=== PATIENT | male | born 1960 | race Caucasian/White ===

== ENCOUNTER 2016-09-11 10:58 | Day surgery (SDC) | payer OTHER ==
[~2016-09-11] VITALS: Ht 180.3 cm; Wt 96.2 kg
[2016-09-11] MEDS ORDERED: PROPOFOL 20 ML ONE (11:58)
[2016-09-11 11:59] VITALS: Ht 180.3 cm; Wt 96.2 kg
[2016-09-11] MEDS ORDERED: MIDAZOLAM 1 MG/ML 2 ML INJ ONE (11:59)
[2016-09-11] MEDS ORDERED: blood pressure med (12:06)
[2016-09-11] MEDS ORDERED: CLON-412 PO (12:06)
[2016-09-11] MEDS ORDERED: WARF6TAB35 PO (12:06)
[2016-09-11] MEDS ORDERED: CLZP100T PO ×2 (12:06)
[2016-09-11] MEDS ORDERED: cholesterol med (12:06)
--- NOTE | 2016-09-11 18:59 | GILP ---
DATE OF PROCEDURE: PREOPERATIVE DIAGNOSIS: Rectal bleeding, screening colonoscopy with anesthesia. The patient was on Coumadin even though the pro time on 09/04 was elevated. He has stopped the Coumadin last 5 days. Thus, it is safe to proceed with colonoscopy. DESCRIPTION OF PROCEDURE: The patient was sedated, monitored by the anesthesiologist, and I advanced an Olympus video colonoscope all the way to cecum with some difficulty due to poor prep in the left colon. This was washed with water. Intussusception was noted in the sigmoid descending colon area. This was opened up with the air pressure and advanced the scope all the way to cecum. Appendiceal opening, ileocecal valve identified. Cecum, ascending colon normal. Descending colon definitely had intussusception that it was opened up with the air pressure alone and no diverticula or diverticulitis in the rectosigmoid, and rectum including retroflexion showed internal hemorrhoids , grade II with hypertrophic anal papilla. These were photographed. Upon removal of scope, patient had no complication. IMPRESSION: 1. Mild intussusception in the left colon. 2. Internal hemorrhoids, grade II. 3. Mild poor preparation in the left colon, otherwise unremarkable. PLAN: Advise him to have repeat colonoscopy if he continues to have symptoms, in 5 years would repeat the colonoscopy. Dictated By: JORDON PAYNE Conf#: [id number] DID#: [id number] CC: NITA XIE MD;*EndCC* MTDD
== END 2016-09-11 13:54 | disposition home or self-care (01) ==
LOC: GIL 10:58
PROVIDERS: ATTEND Internal Medicine
DX: Z12.11 Encounter for screening for malignant neoplasm of colon (principal); K64.8 Other hemorrhoids
CPT/HCPCS: 45378; J2250; Z7610